=== PATIENT | female | born 1945 | race Caucasian/White ===

== ENCOUNTER 2017-03-07 14:43 | Inpatient (IN) | payer OTHER, MEDICARE ==
[~2017-03-07] VITALS: Ht 154.9 cm; Wt 63.2 kg
[~2017-03-07 14:43] MED LIST: CIPRO250 MG PO; ESTRACE VAG0.1 MG/GM VA; GLYBURIDE2.5 MG PO; HYZAAR1 TA2 PO; LEVOTHYROXIN50 MC1 PO; METFORMIN500 M1 PO; NAPROSYN500 MG PO; NORVASC PO; PEPCID20 MG PO; PLAVIX75 MG PO; PREMARIN VAG0.625 MG VA; SIMVASTATIN10 MG PO; TENORMIN50 MG PO; TRIGLIDE160 MG PO; VIT E COMPLX400 UNIT OR
[2017-03-07 15:21] LABS: HEMATOCRIT 50.4 % (37.0-47.0); HEMOGLOBIN 16.6 g/dl (12.0-16.0); IMMATURE GRANULOCYTES 0.8 % (0.0-1.0); MEAN CELL VOLUME 86.3 fL CALC (80.0-100.0); MEAN CORPUSCULAR HGB 28.4 pG CALC (26.0-32.0); MEAN CORPUSCULAR HGB CONC 32.9 g/L CALC (32.0-36.0); NEUT# 7.96 thou/uL (2.00-7.15); RED BLOOD COUNT 5.84 mill/uL (4.20-5.60); RED CELL DISTRI WIDTH 13.9 % (11.5-15.5)
[2017-03-07 15:37] LABS: ALBUMIN 4.5 g/dL (3.2-5.0); ALKALINE PHOSPHATASE 94 u/l (38-126); ANION GAP 18 (6-22 (CALC)); BILIRUBIN, TOTAL 0.7 mg/dL (0.0-1.4); BUN 26 mg/dL (8-23); BUN/CREATININE RATIO 29 (12-20 (CALC)); CALCIUM 9.9 mg/dL (8.4-10.2); CARBON DIOXIDE 27 mmol/l (22-30); CHLORIDE 95 mmol/l (95-108); CREATININE 0.9 mg/dL (0.5-1.0); GFR > 60 ML/MIN (>=60 (CALC)); GFR FOR AFR.AMER. > 60 ML/MIN (>=60 (CALC)); GLUCOSE 103 mg/dL (82-115); POTASSIUM 4.4 mmol/l (3.5-5.1); SGOT/AST 122 u/l (9-36); SGPT/ALT 109 u/l (11-66); SODIUM 136 mmol/l (137-146); TOTAL PROTEIN 7.8 g/dL (6.3-8.2)
[2017-03-07 15:49] LABS: MYOGLOBIN 84 ng/mL (0 - 62)
[2017-03-08 00:35] VITALS: BP 131/64
[2017-03-08 04:15] VITALS: BP 136/75
[2017-03-08 09:00] VITALS: BP 140/63
[2017-03-08 10:34] LABS: CHOLESTEROL HDL RATIO 5.9 (<4.4 (CALC)); MAGNESIUM 1.8 mg/dL (1.6-2.3)
[2017-03-08] MEDS ORDERED: LEVOTHYROXIN75 MCG PO (15:20)
[2017-03-08] MEDS ORDERED: LANTUS100 UNIT/M SC (15:25)
[2017-03-08 16:45] VITALS: BP 118/56
[2017-03-08] MEDS ORDERED: METOPROL TAR25 M1 PO (17:53)
[2017-03-08 19:40] VITALS: BP 105/57
[2017-03-09 00:30] VITALS: BP 119/67
[2017-03-09 04:33] VITALS: BP 106/52
[2017-03-09 06:03] LABS: HEMATOCRIT 46.6 % (37.0-47.0); HEMOGLOBIN 15.4 g/dl (12.0-16.0); IMMATURE GRANULOCYTES 0.7 % (0.0-1.0); MEAN CELL VOLUME 87.3 fL CALC (80.0-100.0); MEAN CORPUSCULAR HGB 28.8 pG CALC (26.0-32.0); NEUT# 9.7 thou/uL (2.00-7.15); RED BLOOD COUNT 5.34 mill/uL (4.20-5.60); RED CELL DISTRI WIDTH 13.9 % (11.5-15.5)
[2017-03-09 06:26] LABS: ANION GAP 16 (6-22 (CALC)); BUN 38 mg/dL (8-23); BUN/CREATININE RATIO 38 (12-20 (CALC)); CALCIUM 9.5 mg/dL (8.4-10.2); CARBON DIOXIDE 28 mmol/l (22-30); CHLORIDE 96 mmol/l (95-108); GFR 55 ML/MIN (>=60 (CALC)); GFR FOR AFR.AMER. > 60 ML/MIN (>=60 (CALC)); GLUCOSE 168 mg/dL (82-115); POTASSIUM 5.1 mmol/l (3.5-5.1); SODIUM 135 mmol/l (137-146)
[2017-03-09 07:23] LABS: URINE BILIRUBIN - DIPSTICK NEGATIVE (NEGATIVE); URINE BLOOD DIPSTICK TRACE-INTACT (NEGATIVE); URINE COLOR YELLOW; URINE GLUCOSE - DIPSTICK >=1000 mg/dL (NEGATIVE); URINE KETONE NEGATIVE (NEGATIVE); URINE LEUK ESTERASE NEGATIVE (NEGATIVE); URINE PROTEIN - DIPSTICK 30 mg/dL (NEG-TRACE); URINE SPECIFIC GRAVITY 1.015; URINE UROBILINOGEN - DIPSTICK 0.2 E.U./dL (0.2)
[2017-03-09 07:26] LABS: URINE CLARITY CLEAR; URINE NITRITE - DIPSTICK POSITIVE (Negative)
[2017-03-09 07:35] LABS: URINE BACTERIA MANY hpf; URINE RBC 0-2 RBC/hpf (0-5); URINE SQUAMOUS EPITHELIAL CELL FEW EPI/hpf (0-FEW); URINE WBC 0-2 WBC/hpf (0-5); URINE YEAST FEW hpf
[2017-03-09 07:57] VITALS: BP 114/60
[2017-03-09 11:00] VITALS: BP 129/68
[2017-03-09 17:04] VITALS: BP 138/70
[2017-03-09 20:05] VITALS: BP 165/69
[2017-03-10 05:00] VITALS: BP 166/76
[2017-03-10 05:26] LABS: HEMATOCRIT 46.6 % (37.0-47.0); HEMOGLOBIN 15.3 g/dl (12.0-16.0); IMMATURE GRANULOCYTES 0.6 % (0.0-1.0); MEAN CELL VOLUME 86.8 fL CALC (80.0-100.0); MEAN CORPUSCULAR HGB 28.5 pG CALC (26.0-32.0); MEAN CORPUSCULAR HGB CONC 32.8 g/L CALC (32.0-36.0); NEUT# 8.8 thou/uL (2.00-7.15); RED BLOOD COUNT 5.37 mill/uL (4.20-5.60); RED CELL DISTRI WIDTH 13.7 % (11.5-15.5)
[2017-03-10 05:34] LABS: BUN 32 mg/dL (8-23); BUN/CREATININE RATIO 42 (12-20 (CALC)); CALCIUM 9.4 mg/dL (8.4-10.2); CARBON DIOXIDE 31 mmol/l (22-30); CHLORIDE 96 mmol/l (95-108); CREATININE 0.8 mg/dL (0.5-1.0); GFR > 60 ML/MIN (>=60 (CALC)); GFR FOR AFR.AMER. > 60 ML/MIN (>=60 (CALC)); GLUCOSE 237 mg/dL (82-115); SODIUM 136 mmol/l (137-146)
[2017-03-10 05:40] LABS: ANION GAP 14 (6-22 (CALC)); POTASSIUM 5.3 mmol/l (3.5-5.1)
[2017-03-10 09:01] VITALS: BP 146/68
[2017-03-10 11:00] VITALS: BP 142/76
[2017-03-10] MEDS ORDERED: ALPRAZOLAM0.25 MG PO (12:03)
[2017-03-10] MEDS ORDERED: ZPAK PO (12:03)
== END 2017-03-10 15:10 | disposition home or self-care (01) | DRG 189 ==
LOC: ED 14:43 → ED-I 22:30 → ED 23:17 → MS2 23:18
PROVIDERS: Emergency Medicine; Internal Medicine; Nurse Practitioner Family; ADMIT Internal Medicine; ATTEND Internal Medicine
DX: J96.01 Acute respiratory failure with hypoxia (principal); E11.51 Type 2 diabetes mellitus with diabetic peripheral angiopathy without gangrene; J44.1 Chronic obstructive pulmonary disease with (acute) exacerbation; J44.0 Chronic obstructive pulmonary disease with (acute) lower respiratory infection; J20.9 Acute bronchitis, unspecified; E03.9 Hypothyroidism, unspecified; F17.210 Nicotine dependence, cigarettes, uncomplicated; I10 Essential (primary) hypertension; E78.5 Hyperlipidemia, unspecified; Z79.4 Long term (current) use of insulin; Z95.820 Peripheral vascular angioplasty status with implants and grafts; Z88.8 Allergy status to other drugs, medicaments and biological substances

== ENCOUNTER 2018-06-20 01:42 | Emergency (ER) | payer MEDICARE ==
[~2018-06-20] VITALS: Ht 152.4 cm; Wt 68.2 kg
[~2018-06-20 01:42] MED LIST changes: +ALPRAZOLAM0.25 MG PO; +LANTUS100 UNIT/M SC; +LEVOTHYROXIN75 MCG PO; +METOPROL TAR25 M1 PO; +ZPAK PO
[2018-06-20] MEDS ORDERED: LOSARTAN POT50 MG PO (02:11)
[2018-06-20] MEDS ORDERED: METO25TAB PO (02:11)
[2018-06-20] MEDS ORDERED: LANTUS SOL100 UNIT/M SC (02:11)
[2018-06-20 02:50] VITALS: BP 147/65
== END 2018-06-20 02:50 | disposition home or self-care (01) ==
LOC: ED 01:42
DX: E11.9 Type 2 diabetes mellitus without complications (principal); Z79.4 Long term (current) use of insulin; I10 Essential (primary) hypertension; F17.200 Nicotine dependence, unspecified, uncomplicated

== ENCOUNTER 2019-09-16 12:48 | Emergency (ER) | payer MEDICARE ==
[~2019-09-16] VITALS: Ht 152.4 cm; Wt 76.0 kg
[~2019-09-16 12:48] MED LIST changes: +LANTUS SOL100 UNIT/M SC; +LOSARTAN POT50 MG PO; +METO25TAB PO
[2019-09-16] MEDS ORDERED: TRIGLIDE160 MG PO (13:22)
[2019-09-16] MEDS ORDERED: HYZAAR1 TA2 PO (13:22)
[2019-09-16] MEDS ORDERED: K-TAB20 MEQ PO (13:24)
[2019-09-16] MEDS ORDERED: HUMALOG100 MG/ML (13:40)
[2019-09-16] MEDS ORDERED: TOUJEO MAX300 UNIT/M SC (13:41)
[2019-09-16] MEDS ORDERED: NORVASC5 M1 PO (13:41)
[2019-09-16] MEDS ORDERED: PLAVIX75 MG PO (13:42)
[2019-09-16] MEDS ORDERED: LEVOTHYROXIN75 MCG PO (13:42)
[2019-09-16 13:43] LABS: IMMATURE GRANULOCYTES 0.7 % (0.0-5.0); MEAN CORPUSCULAR HGB 27.8 pG CALC (26.0-32.0); MEAN CORPUSCULAR HGB CONC 34.5 g/dL CAL (32.0-36.0); NEUT# 7.62 thou/uL (2.00-7.15); RED BLOOD COUNT 4.72 mill/uL (4.20-5.60)
[2019-09-16] MEDS ORDERED: METOPROL TAR25 MG PO (13:43)
[2019-09-16] MEDS ORDERED: METFORMIN500 M2 PO (13:43)
[2019-09-16 13:46] LABS: HEMOGLOBIN 13.1 g/dl (12.0-16.0); MEAN CELL VOLUME 80.5 fL CALC (80.0-100.0)
[2019-09-16 13:59] LABS: ALBUMIN 4.1 g/dL (3.2-5.0); ALKALINE PHOSPHATASE 75 u/l (38-126); BILIRUBIN, TOTAL 0.6 mg/dL (0.0-1.4); BUN 34 mg/dL (8-23); BUN/CREATININE RATIO 19 (12-20 (CALC)); CARBON DIOXIDE 25 mmol/l (22-30); CHLORIDE 90 mmol/l (95-108); CREATININE 1.7 mg/dL (0.5-1.0); GFR 29 ML/MIN (>=60 (CALC)); GFR FOR AFR.AMER. 36 ML/MIN (>=60 (CALC)); TOTAL PROTEIN 7.3 g/dL (6.3-8.2)
[2019-09-16 14:06] LABS: ANION GAP 16 (6-22 (CALC)); POTASSIUM 4.1 mmol/l (3.5-5.1); SGOT/AST 29 u/l (9-36); SODIUM 127 mmol/l (137-146)
[2019-09-16 14:10] LABS: URINE BILIRUBIN - DIPSTICK NEGATIVE (NEGATIVE); URINE BLOOD DIPSTICK SMALL (NEGATIVE); URINE COLOR YELLOW; URINE GLUCOSE - DIPSTICK >=1000 mg/dL (NEGATIVE); URINE KETONE NEGATIVE (NEGATIVE); URINE PH 6.5 (4.5-8.0); URINE PROTEIN - DIPSTICK >=300 mg/dL (NEG-TRACE); URINE SPECIFIC GRAVITY 1.025; URINE UROBILINOGEN - DIPSTICK 0.2 E.U./dL (0.2)
[2019-09-16 14:15] LABS: URINE LEUK ESTERASE SMALL (NEGATIVE); URINE NITRITE - DIPSTICK POSITIVE (Negative)
[2019-09-16 14:23] LABS: URINE SQUAMOUS EPITHELIAL CELL FEW EPI/hpf (0-FEW); URINE WBC 20-50 WBC/hpf (0-5)
[2019-09-16] MEDS ORDERED: CEPHALEXIN500 M1 PO (15:20)
[2019-09-16 15:40] VITALS: BP 165/66
== END 2019-09-16 15:43 | disposition home or self-care (01) ==
LOC: ED 12:48
PROVIDERS: Family Medicine
DX: E11.65 Type 2 diabetes mellitus with hyperglycemia (principal); N39.0 Urinary tract infection, site not specified; N28.9 Disorder of kidney and ureter, unspecified; I10 Essential (primary) hypertension; J44.9 Chronic obstructive pulmonary disease, unspecified; B96.20 Unspecified Escherichia coli [E. coli] as the cause of diseases classified elsewhere; Z95.820 Peripheral vascular angioplasty status with implants and grafts; Z79.4 Long term (current) use of insulin; F17.200 Nicotine dependence, unspecified, uncomplicated